=== PATIENT | female | born 2000 | race Caucasian/White ===

== ENCOUNTER 2021-12-06 15:18 | Outpatient (CLI) | payer OTHER, SELFPAY ==
[2021-12-08 19:50] LABS: Rapid Plasma Reagin (RPR) Non Reactive (Non Reactive)
== END 2021-12-06 15:19 | disposition home or self-care (01) ==
PROVIDERS: Visit Provider Physician Assistant
DX: Z34.90 Encounter for supervision of normal pregnancy, unspecified, unspecified trimester (principal)
CPT/HCPCS: 86592

== ENCOUNTER 2021-12-27 11:27 | Outpatient (CLI) | payer OTHER, SELFPAY ==
[2021-12-27] VITALS (12 sets, daily range): BP systolic 108–129; BP diastolic 62–84; PULSE 80–92; RESP 16; TEMP 36.3–37.1; O2SAT 96–100; BMI 34.3
--- NOTE | 2021-12-27 11:23 | ED.NURSE ---
after triage assessment and ob assessment pt will go to OB, talked to raeann dry house tender.
[2021-12-27 12:15] LABS: Appearance Urine Clear (Clear); Bilirubin Urine Negative (Negative); Blood Urine Negative (Negative); Color Urine Yellow (Yellow); Glucose Urine Negative (Negative); Ketones Urine Negative (Negative); Leukocyte Esterase Urine Trace (Negative); Nitrite Urine Negative (Negative); Protein Urine Negative (Negative); Urobilinogen Urine 0.2 (0.2-1.0)
[2021-12-27 12:25] LABS: RBC Urine 0-2 (0-2); WBC Urine 0-2 (0-5)
--- NOTE | 2021-12-27 14:39 | PC.OBNST ---
NST Note NST Note Start: 12/27/21 11:43 Freq: ONCE Status: Active Protocol: Document 12/27/21 14:37 MMB (Rec: 12/27/21 14:39 MMB [id number]) NST Note 4 Para (# of births) 1 EDC 02/26/22 Gestational Age In Weeks & Days 31 Weeks & 2 Days Patient Presented with Complaint(s) of Pain If Pain, describe location left rib/flank/shoulder pain Reactive Yes Appropriate for Gestational Age Yes RN Dionna Garcia RN Date 12/27/21 Reactive Yes Appropriate for Gestational Age Yes RN Dionna Sanchez RN Date 12/27/21 OB NST charge Yes Complete NST Note via Write Note Yes The provider's electronic signature indicates the NST is reactive/appropriate for gestational age. *Note to provider: If an addendum is required, open the patient's chart and click on the note under the Nurse/Allied Health tab.
== END 2021-12-27 13:24 | disposition home or self-care (01) ==
LOC: OB OUT 11:29 → OB 11:31
PROVIDERS: Visit Provider Obstetrics & Gynecology
DX: Z34.93 Encounter for supervision of normal pregnancy, unspecified, third trimester (principal); Z3A.32 32 weeks gestation of pregnancy
CPT/HCPCS: 59025; 81003; 81015; 99213

== ENCOUNTER 2022-01-31 15:35 | Outpatient (CLI) | payer OTHER, SELFPAY ==
[2022-02-01 14:17] LABS: Strep B DNA Probe NEGATIVE (Negative)
[2022-02-02 08:19] LABS: Strep B Pen/Amox Allergy No
== END 2022-01-31 15:36 | disposition home or self-care (01) ==
LOC: NFLDREF 15:37
PROVIDERS: Visit Provider Physician Assistant
DX: Z34.93 Encounter for supervision of normal pregnancy, unspecified, third trimester (principal); Z3A.35 35 weeks gestation of pregnancy
CPT/HCPCS: 87081; 87653

== ENCOUNTER 2022-02-17 05:58 | Inpatient (IN) | payer OTHER, SELFPAY ==
[2022-02-17] VITALS (51 sets, daily range): BP systolic 95–147; BP diastolic 53–90; PULSE 57–112; RESP 16–20; TEMP 36.3–37.1; O2SAT 85–100; BMI 34.8
[2022-02-17 06:33] LABS: Amnisure Rom* POSITIVE
[2022-02-17] MEDS: ROPIVACAINE 0.2% 100 ml 100 ML 12 MG EPIDURAL (07:42)
[2022-02-17 07:45] LABS: SARS PCR* Negative SARS-CoV-2 (Negative)
--- NOTE | 2022-02-17 07:48 | PM.ANBPRC ---
PFSH PFS Medical History (Updated 02/16/22 @ 12:41 by Lucy Billy MD) Family history of congenital heart defect Family History (Updated 09/07/21 @ 10:15 by Monet Husain) Other Congenital heart defect Social History Smoking Status: Never smoker Meds Home Medications and Allergies Home Medications Medication Instructions Recorded Confirmed Type doxylamine succinate 25 mg tablet 25 mg PO QHS PRN 02/10/22 02/17/22 History (Unisom (doxylamine)) prenat.vits,ruba,moi-rtyh-spazc 1 tab PO QDAY 02/10/22 02/17/22 History Allergies Allergy/AdvReac Type Severity Reaction Status Date / Time No Known Drug Allergies Allergy Verified 02/17/22 06:51 Results Labs Labs: Laboratory Results - last 24 hr 02/17/22 02/17/22 06:23 06:35 Membrane Rupture POSITIVE SARS-CoV-2 (PCR) Negative SARS-CoV-2 Vital Signs Vital Signs: Last Vital Signs Pulse 91 02/17/22 07:47 BP 117/58 L 02/17/22 07:47 Pulse Ox 85 L 02/17/22 07:37 Weight: 92.079 kg Height: 162.56 cm Anesthesia Procedures Epidural Insertion Patient Location: OB Start Time: 07:30 Stop Time: 08:30 Start Date: 02/17/22 Stop Date: 02/17/22 Reason for Block: procedure for pain Patient Position: sitting Performed By: Orlando Dang Preanesthetic Checklist: IV checked, site marked, risks and benefits discussed, monitors and equipment checked and pre-op evaluation Prep: chlorhexidine gluconate Monitoring: blood pressure monitoring, continuous pulse oximetry and heart rate Approach: midline Vertebral Space: lumbar (1-5) Epidural Technique: JACKSON saline Needle Type: Tuohy needle Injection Technique: continuous catheter Needle gauge: 17 Needle Insertion Depth (cm): 7 Catheter Gauge: 19 Catheter Type: multi-orifice Catheter at skin depth (cm): 12 Test Dose Result: negative and lidocaine 1.5% with epinephrine 1 to 200,000
[2022-02-17] MEDS: PHENYLEPHRINE 100 MCG/ML SYRINGE IVP ×3 (07:50→09:38)
[2022-02-17] MEDS: LACTATED RINGERS 1000 ML 1,000 ML 125 ML IV (08:07)
--- NOTE | 2022-02-17 08:25 | P.LDBA_ITS ---
Subjective History of Present Illness Date Seen: 02/17/22 Narrative: Patient is being admitted to Labor and Delivery for delivery after SROM. She is a 21 year old at weeks gestation. Her full history and physical was dictated by Dr. ACEVES on 02/10/22. Please see this for details. Patient states that she had watery like discharge at around 4am this morning, she presented to labor and delivery and AmniSure completed and found positive. Also, experiencing regular and painful uterine contractions. Specific Issues/Plans Spouse:? Vamsi At home:? Boy: Kushal. Baby:Boy. Blood type:?A positive 1. Nausea and vomiting Vitamin B6 and Unisom Promethazine added 07/20/2021 2. Family history of congenital heart defect.? Father of baby's brother had missing pulmonary artery * Level 2 ultrasound and echo ordered.? * Level 2 ultrasound 09/29/2021:? Anterior placenta, no previa.? EFW 79%.? Normal anatomy with suboptimal views of face, heart/throax/spine/right and left hand. * Follow-up ultrasound 10/20/2021:? Remaining anatomy survey was completed, no anomalies. * Did? not recommend echo as congenital heart disease is not in a first- degree relative * 3. Mildly elevated blood pressures at the end of previous , normal preeclampsia labs Pre E labs 08/16/2021: Entirely normal, with prot:cr 0.04 81 mg of aspirin 12-36 weeks 4. Cf carrier, FOB- negative 5. Influenza A 01/29/22 OB - H&P: Exam Physical Exam: Vital signs: Pulse BP Pulse Ox 85 147/78 H 100 02/17/22 08:12 02/17/22 08:12 02/17/22 08:04 Narrative: VITAL SIGNS: As noted above. GENERAL APPEARANCE: Alert, cooperative female in no acute distress. MOOD & AFFECT: Normal. ABDOMEN: Gravid, non tender. Cervix: 3/80/0, by nursing EXTREMITIES: Well perfused. Nontender. NST: 130bpm/positive accelerations/negative decelerations/ moderate variability/ regular uterine contractions OB - Problem Based A/P Additional Plan (1) : Status: Acute Plan Patient presents in early labor after SROM. At admission cervix found favorable. She has continued to experience regular painful uterine contractions. NST category 1. 1. Expectant management of labor 2. Epidural in place 3. Continuos monitoring 4. GBS negative no need for antibiotics
[2022-02-17 09:13] LABS: Hematocrit 31.6 % (33.0-51.0); Hemoglobin* 10.6 gm/dL (12.0-16.0); Mean Corpuscular HGB Conc 34 gm/dL (32-36); Mean Corpuscular Hemoglobin 29 pg (26-34); Mean Corpuscular Volume 86 fL (80-100); Platelet Count* 196 K/uL (140-440); Red Blood Count 3.67 m/uL (4.00-5.20); White Blood Count* 9.36 K/uL (4.50-11.00)
[2022-02-17 09:17] LABS: Slide Review Reflex No
[2022-02-17 09:28] LABS: Creatinine* 0.6 mg/dL (0.5-1.5); Estimated Glomerular Filt Rate 130 ml/min
[2022-02-17 09:29] LABS: Alanine Aminotransferase* 19 U/L (4-35); Aspartate Amino Transferase* 35 U/L (12-35); Blood Urea Nitrogen* 11 mg/dL (5-24); Fibrinogen* 497 mg/dL (200-450); Prothrombin Time 12.7 Seconds
[2022-02-17] MEDS: LACTATED RINGERS 1000 ML 1,000 ML 1200 ML IV (10:36)
[2022-02-17] MEDS: OXYTOCIN 30 unit/500 ML in NS 30 UNIT/500 ML BAG 325 UNIT IVPB (12:25)
[2022-02-17] MEDS: IBUPROFEN 600 MG TABLET PO ×2 (16:38→22:26)
--- NOTE | 2022-02-17 19:05 | PM.OBPRCVD ---
Procedure Procedure Done: Global Intrapartal Events: None Delivery monitor: external FHT Route of delivery: Episiotomy description: None Laceration description: Perineal - 2nd Degree Delivery repair: Vicryl Estimated blood loss (mL): 300 Anesthesia type: Epidural Disposition: floor Complications: None Narrative: The patient is a 21 year-old G 4 P 2021 admitted on 02/17/2022 at 38 Weeks, 5 Days gestation in labor for delivery.? Cervical exam on admission was 3 cm/80 % effaced/0 station with membranes ruptured in vertex presentation.? Contractions were every 3-5 minutes.? heart rate demonstrated baseline 140 bpm with moderate variability, positive accelerations, negative decelerations; a category 1 tracing.? SROM occurred at 0450 with clear fluid. ? Labor Analgesia:? Epidural ? Pitocin:? No ? Labor onset:? 0700 ? Complete:? 1200 ? Pushing:? 1201 ? heart tones during second stage were category 2, 1 deceleration down to 80s while with the next push baby delivered. ? At 12 20 a viable male delivered in vertex AVELINA presentation over intact perineum via spontaneous vaginal delivery.? was placed on maternal abdomen.? Cord was clamped and cut after a 30-60 second delay.? Nose and mouth were bulb suctioned.? Infant weight pending.? 8 at 1 minute and 9 at 5 minutes.? Shoulder dystocia: No.? Nuchal cord: Yes x1. ? Placenta delivered spontaneously and complete at 1224 with a 3 vessel cord. ? Mother and infant were stable after delivery. ? Lacerations:? 2nd degree perineal, repaired with Vicryl 3-0. ? Blood loss: 300 mL. Blood loss measurement type: QBL ? Sponge and needles counts are correct. Gender: Male presentation: vertex Placental Delivery Description: Spontaneous Cord Description: 3 Vessels and Nuchal Cord total score - 1 minute: 8 total score - 5 minute: 9
[2022-02-17] MEDS: ACETAMINOPHEN 500 MG TABLET 1000 MG PO (19:27)
[2022-02-18 02:09] VITALS: BP 119/80; PULSE 68; RESP 16; TEMP 36.3; O2SAT 98
[2022-02-18] MEDS: ACETAMINOPHEN 500 MG TABLET 1000 MG PO (02:13)
[2022-02-18 04:31] LABS: Hemoglobin* 10.1 gm/dL (12.0-16.0)
[2022-02-18] MEDS: IBUPROFEN 600 MG TABLET PO ×2 (04:49→11:42)
[2022-02-18 05:30] VITALS: BP 116/80; PULSE 69; RESP 16; TEMP 36.6; O2SAT 95
--- NOTE | 2022-02-18 07:24 | P.DS_ITS ---
DS: Providers Provider Date Seen: 02/18/22 Date of admission: 02/17/22 05:58 Primary care physician: Not a Local Provider Admitting Clinician: Lucy Billy MD Attending Physician on discharge: Ashly King CNM Date of Discharge: 02/18/22 DS: Diagnosis Discharge Diagnosis (1) care and examination immediately after delivery: Status: Acute (2) Status post normal vaginal delivery: Status: Acute (3) Lactating mother: Status: Acute Exam Const: Vital Signs, click to edit/add: Vital Signs - 24 hr 02/17/22 07:28 02/17/22 07:32 02/17/22 07:33 Temperature Pulse Rate 81 86 Pulse Rate [Pulse Oximeter] Respiratory Rate Blood Pressure 134/86 136/90 H Blood Pressure [Le ft Arm] Pulse Oximetry 100 100 Oxygen Delivery Me od 02/17/22 07:35 02/17/22 07:37 02/17/22 07:39 Temperature Pulse Rate 85 87 Pulse Rate [Pulse Oximeter] Respiratory Rate Blood Pressure 137/85 136/66 Blood Pressure [Le ft Arm] Pulse Oximetry 85 L Oxygen Delivery Me od 02/17/22 07:41 02/17/22 07:43 02/17/22 07:45 Temperature Pulse Rate 96 88 91 Pulse Rate [Pulse Oximeter] Respiratory Rate Blood Pressure 129/60 131/59 L 118/55 L Blood Pressure [Le ft Arm] [facility]etry [facility] 02/[facility] 07:47 02/17/22 07:49 02/17/22 07:51 Temperature Pulse Rate 91 100 86 Pulse Rate [Pulse Oximeter] Respiratory Rate Blood Pressure 117/58 L 111/57 L 122/61 Blood Pressure [Le ft Arm] Pulse Oximetry Oxygen Delivery Me thod 02/17/22 07:57 02/17/22 08:02 02/17/22 08:04 Temperature Pulse Rate 81 81 Pulse Rate [Pulse Oximeter] Respiratory Rate Blood Pressure 128/58 L 133/76 Blood Pressure [Le ft Arm] Pulse Oximetry 100 Oxygen Delivery Me od 02/17/22 08:07 02/17/22 08:12 02/17/22 08:34 Temperature Pulse Rate 76 85 83 Pulse Rate [Pulse Oximeter] Respiratory Rate Blood Pressure 141/75 H 147/78 H 110/58 L Blood Pressure [Le ft Arm] Pulse Oximetry Oxygen Delivery Me thod 02/17/22 08:37 02/17/22 08:54 02/17/22 08:07 Temperature 98.5 F Pulse Rate 80 100 Pulse Rate [Pulse Oximeter] Respiratory Rate 16 Blood Pressure 112/56 L 131/59 L Blood Pressure [Le ft Arm] Pulse Oximetry Oxygen Delivery Me thod 02/17/22 09:23 02/17/22 09:23 02/17/22 09:31 Temperature 98.3 F Pulse Rate 90 57 L Pulse Rate [Pulse Oximeter] Respiratory Rate 16 Blood Pressure 96/54 L 107/55 L Blood Pressure [Le ft Arm] Pulse Oximetry Oxygen Delivery Me thod 02/17/22 09:38 02/17/22 09:53 02/17/22 10:11 Temperature Pulse Rate 63 67 93 Pulse Rate [Pulse Oximeter] Respiratory Rate Blood Pressure 99/57 L 110/55 L 108/55 L Blood Pressure [Le ft Arm] Pulse Oximetry Oxygen Delivery Ca thod 02/17/22 10:23 02/17/22 10:39 02/17/22 10:48 Temperature Pulse Rate 81 80 Pulse Rate [Pulse Oximeter] Respiratory Rate Blood Pressure 105/60 123/57 L Blood Pressure [Le ft Arm] Pulse Oximetry 100 Oxygen Delivery Ca thod 02/17/22 10:53 02/17/22 11:09 02/17/22 11:23 Temperature Pulse Rate 75 72 78 Pulse Rate [Pulse Oximeter] Respiratory Rate Blood Pressure 120/58 L 109/63 99/54 L Blood Pressure [Le ft Arm] Pulse Oximetry Oxygen Delivery Ca thod 02/17/22 11:38 02/17/22 11:54 02/17/22 12:07 Temperature 98.7 F Pulse Rate 87 75 Pulse Rate [Pulse Oximeter] Respiratory Rate 18 Blood Pressure 95/53 L 106/59 L Blood Pressure [Le ft Arm] Pulse Oximetry Oxygen Delivery Me thod 02/17/22 12:23 02/17/22 12:28 02/17/22 12:42 Temperature Pulse Rate 81 82 80 Pulse Rate [Pulse Oximeter] Respiratory Rate Blood Pressure 120/80 114/60 120/65 Blood Pressure [Le ft Arm] Pulse Oximetry Oxygen Delivery Me thod 02/17/22 12:57 02/17/22 13:13 02/17/22 13:31 Temperature Pulse Rate 81 74 78 Pulse Rate [Pulse Oximeter] Respiratory Rate Blood Pressure 119/63 115/61 117/66 Blood Pressure [Le ft Arm] Pulse Oximetry Oxygen Delivery Me thod 02/17/22 13:43 02/17/22 11:54 02/17/22 13:58 Temperature 98.8 F Pulse Rate 75 72 Pulse Rate [Pulse Oximeter] Respiratory Rate 20 Blood Pressure 121/68 124/68 Blood Pressure [Le ft Arm] Pulse Oximetry Oxygen Delivery Me thod 02/17/22 14:13 02/17/22 14:27 02/17/22 10:50 Temperature 98.8 F Pulse Rate 74 75 Pulse Rate [Pulse Oximeter] Respiratory Rate 16 Blood Pressure 120/75 115/72 Blood Pressure [Le ft Arm] Pulse Oximetry Oxygen Delivery Me thod 02/17/22 12:28 02/17/22 16:05 02/17/22 12:42 Temperature 97.4 F L 98.8 F Pulse Rate Pulse Rate [Pulse Oximeter] 84 Respiratory Rate 16 16 16 Blood Pressure Blood Pressure [Le ft Arm] 118/84 Pulse Oximetry 100 Oxygen Delivery Me thod Room Air 02/17/22 12:57 02/17/22 13:13 02/17/22 13:31 Temperature 98.8 F Pulse Rate Pulse Rate [Pulse Oximeter] Respiratory Rate 16 16 16 Blood Pressure Blood Pressure [Le ft Arm] Pulse Oximetry 100 Oxygen Delivery Ca thod 02/17/22 13:43 02/17/22 13:58 02/17/22 14:13 Temperature 98.6 F 98.6 F Pulse Rate Pulse Rate [Pulse Oximeter] Respiratory Rate 16 16 16 Blood Pressure Blood Pressure [Le ft Arm] Pulse Oximetry 100 Oxygen Delivery Me thod 02/17/22 14:27 02/17/22 19:23 02/18/22 02:09 Temperature 98.2 F 97.4 F L Pulse Rate Pulse Rate [Pulse Oximeter] 68 68 Respiratory Rate 16 16 16 Blood Pressure Blood Pressure [Le ft Arm] 118/79 119/80 Pulse Oximetry 97 98 Oxygen Delivery Me thod Room Air Room Air 02/18/22 05:30 Temperature 97.8 F Pulse Rate Pulse Rate [Pulse Oximeter] 69 Respiratory Rate 16 Blood Pressure Blood Pressure [Le ft Arm] 116/80 Pulse Oximetry 95 Oxygen Delivery Me thod Room Air Documenting provider has reviewed patient's vital signs: yes Common normals : no apparent distress, oriented x3, healthy appearing and alert HENMT: Common normals: normocephalic Head and scalp: normocephalic Eye: Common normals: PERRL Pupil: PERRL Neck & C-Spine: Common normals: full ROM and supple Chest: Common normals: inspection of chest normal Resp: Common normals: normal respiratory effort and clear to auscultation bilaterally Auscultation: clear to auscultation bilaterally Cardio: Common normals: regular rate and regular rhythm Rate: regular rate Rhythm: regular rhythm GI: Common normals: soft to palpation Palpation: soft : OB/external & speculum: Yes perineal/vaginal laceration Uterus: U/U Lochia: small Back & Pelvis: Common normals: thoracic and lumbar spine normal to inspection Extremity: Common normals: normal to inspection and full ROM Neuro: Common normals: oriented x3 Sensorium/orientation: alert Speech: speech normal Psych: Common normals: mental status grossly normal, thought process normal, speech normal and activity/motor behavior normal Speech: normal speech Thought process: normal thought process Skin: Common normals: no rashes or lesions noted General skin exam: no rashes or lesions noted OB - DS: Summary Hospital Course Hospital Course: The patient is a 21 year old G 4 P 2021 at 38 6/7 weeks gestation that was admitted to the Center on 02/17/22 for SROM. She had an uncomplicated vaginal delivery. She delivered a viable male infant. the patient has done well. The pain is well controlled with current medications.? She has no new complaints.? Urinary output is adequate and she is voiding without difficulty.? Has a good appetite, is tolerating a general diet, is passing flatus, and has not yet had a bowel movement.? Has small amount of rubra lochia.? She is ambulating well. She is and reports it is going well. Peripartum Data delivery method: Vaginal Laceration description: Perineal - 2nd Degree complications: none Gender: Male Discharge Plan: Home Status at Discharge Functional status at discharge: independent ambulation Overall status at discharge: patient is progressing back to baseline Time Spent with Patient Time attestation: Total time spent providing and/or coordinating discharge services: Discharge Plan Discharge Disposition: Home, Self-Care Date of Admission: 02/17/22 05:58 Attending Provider on Discharge: Ashly King Primary Care Provider: Provider,Not a Local Condition: Stable Anticipated Discharge Date/Time: 02/18/22 12:00 Discharge Medications: New acetaminophen 500 mg Tablet 1,000 mg PO Q6H PRNQty: 0 0RF docusate sodium 100 mg Capsule 100 mg PO DAILY Qty: 90 0RF ibuprofen 600 mg Tablet 600 mg PO Q6H PRNQty: 60 0RF Continued prenat.vits,ruba,cuw-kgjw-gpzqg Tablet 1 tab PO QDAY Unisom (doxylamine) 25 mg tablet 25 mg PO QHS PRN Discharge Orders: Discharge Order (Routine); Ordered 02/18/22 Ordered By: Ashly King Patient Education: OB Vaginal/Breast Feeding Additional Instructions: Discharge instructions were reviewed with the patient including signs and symptoms of infection and home going medications Nothing vaginally for 6 weeks: no tampons or intercourse Off Work or School for 6 weeks 2-week visit: discuss infant feeding concerns, review control options and screen for anxiety/depression. 6-week visit for an annual exam. consultation services are available to all mothers and babies for the first year after delivery.? To make an appointment, please call [phone]. Activity Level: Activity as Tolerated Discharge Diet: Regular Follow Up Appointments: [facility] [Provider Group] (2 weeks and 6 weeks ) Forms: [email or web address] Info Instructions
[2022-02-18 08:27] VITALS: BP 123/81; PULSE 67; RESP 16; TEMP 36.6
[2022-02-18] MEDS: DOCUSATE SODIUM 100 MG CAPSULE PO (11:43)
== END 2022-02-18 14:30 | disposition home or self-care (01) | DRG 807 ==
LOC: OB OUT 05:59 → OB 06:00
PROVIDERS: Obstetrics & Gynecology; Admitting Provider Obstetrics & Gynecology; Visit Provider Obstetrics & Gynecology
DX: O13.4 Gestational [pregnancy-induced] hypertension without significant proteinuria, complicating childbirth (principal); Z37.0 Single live birth; O70.1 Second degree perineal laceration during delivery; Z3A.38 38 weeks gestation of pregnancy
CPT/HCPCS: 01967; 36415; 82565; 82570; 84112; 84156; 84450; 84460; 84520; 85018; 85027; 85384; 85610; 87635; A9270; J2370; J2795; J7120; S0020

== ENCOUNTER 2022-11-29 18:41 | Outpatient (CLI) | payer OTHER, SELFPAY | END 2022-11-29 18:42 | disposition home or self-care (01) | LOC: NFLDREF 18:42 | PROVIDERS: Visit Provider Physician Assistant | DX: N89.8 Other specified noninflammatory disorders of vagina (principal) | CPT/HCPCS: 87102 ==

== ENCOUNTER 2022-12-27 09:13 | Outpatient (CLI) | payer OTHER, SELFPAY ==
--- NOTE | 2022-12-27 09:15 | CRLHL7_ITS ---
For Patients: As a result of the Century Cures Act, medical imaging exams and procedure reports are released immediately into your electronic medical record. You may view this report before your referring provider. If you have questions, please contact your health care provider. INDICATION: First trimester scan, establish dates. COMPARISON: None. TECHNIQUE: Real-time torres-scale imaging of the pelvis was performed. FINDINGS: Sonographic imaging demonstrates a single living intrauterine gestation. The embryo demonstrates a regular cardiac rate measuring 157 beats per minute. The embryo`s crown-rump length measurement of 1.7 cm corresponds to a gestational age of 8 weeks 1 day with a sonographic due date of 08/07/2023. There is a normal-appearing yolk sac. There are no gross abnormalities noted within the embryo at this early state of development. The gestational sac has a normal appearance. There is no evidence of a perigestational hemorrhage. The amount of fluid within the sac appears appropriate for gestational age. The cervix is closed. The myometrium appears normal. The ovaries are of normal size. Corpus luteal cyst right ovary. There are no suspicious fluid collections noted in the cul-de-sac. IMPRESSION: Single living intrauterine with sonographic gestational age 8 weeks 1 day and sonographic due date 08/07/2023. Dictated by Ángel Arndt MD @ 12/27/2022 10:37:09 AM (Electronically Signed)
== END 2022-12-27 09:14 | disposition home or self-care (01) ==
LOC: US 09:14
PROVIDERS: Visit Provider Physician Assistant
DX: Z34.91 Encounter for supervision of normal pregnancy, unspecified, first trimester (principal); Z3A.08 8 weeks gestation of pregnancy
CPT/HCPCS: 76817; 86703; 86706; 86803; 86850; 86900; 86901; 87086; 87340; 87491; 87591

== ENCOUNTER 2022-12-27 10:28 | Outpatient (CLI) | payer OTHER, SELFPAY ==
[2022-12-27 18:49] LABS: Chlamydia DNA Amplified* NOT DETECTED (No Detected); GC DNA Amplified* NOT DETECTED (No Detected)
== END 2022-12-27 10:29 | disposition home or self-care (01) ==
PROVIDERS: Visit Provider Physician Assistant
DX: Z34.91 Encounter for supervision of normal pregnancy, unspecified, first trimester (principal); Z3A.08 8 weeks gestation of pregnancy
CPT/HCPCS: 86592; 86703; 86704; 86706; 86762; 86787; 86803; 86850; 86900; 86901; 87086; 87340; 87491; 87591

== ENCOUNTER 2023-03-28 12:57 | Outpatient (CLI) | payer OTHER, SELFPAY ==
--- NOTE | 2023-03-28 13:00 | CRLHL7_ITS ---
For Patients: As a result of the Century Cures Act, medical imaging exams and procedure reports are released immediately into your electronic medical record. You may view this report before your referring provider. If you have questions, please contact your health care provider. INDICATION: Evaluate anatomy. COMPARISON: 12/27/2022 TECHNIQUE: Real time torres scale imaging of the fetus was performed as well as color Doppler analysis of the umbilical vessels. FINDINGS: Sonographic imaging demonstrates a single living intrauterine gestation. Fetus demonstrates a regular cardiac rate of 149 beats per minute. Fetus has a transverse position, head maternal left. The placenta lies anteriorly without evidence of placenta previa. Edge of the placenta is located 2.7 cm from the internal cervical os. Amniotic fluid volume appears normal. Single deepest vertical pocket: 4.0 cm. The cervix is closed and measures 3.9 cm in length. The composite ultrasound gestational age is calculated at 21 weeks 2 days with an estimated sonographic due date of 08/06/2023. The estimated weight is 401 grams which lies at the 52nd %. The following biometric measurements were obtained: Biparietal diameter: 5.0 cm/21 weeks 1 day 56th% Head circumference: 18.7 cm/21 weeks 0 days 40th% Abdominal circumference: 16.6 cm/21 weeks 4 days 64th% Femur length: 3.4 cm/20 weeks 4 days 27th% The HC/AC ratio measures: 1.13 range (1.06-1.24) On anatomic survey, there is a normal appearance of the cerebral ventricles, cavum septi pellucidi, cisterna magna and cerebellum. The nose, lips, and facial profile appear normal. The cervical, thoracic and lumbar spine are well visualized and appear normal. There is a normal four-chamber heart view and the left and right ventricular outflow tracts appear normal. The diaphragm and stomach appear normal. The kidneys and bladder also appear normal. There is a normal three-vessel cord and there is a marginal cord insertion site, located 1.1 cm from the placenta edge. The four extremities appear normal. IMPRESSION: Concordance of clinical and sonographic dating. No intrinsic abnormalities noted on anatomic survey. Marginal cord insertion 1.1 cm from the placental edge. Dictated by Ángel Arndt MD @ 03/30/2023 1:21:45 PM (Electronically Signed)
== END 2023-03-28 12:58 | disposition home or self-care (01) ==
LOC: US 12:57
PROVIDERS: Visit Provider Physician Assistant
DX: Z34.92 Encounter for supervision of normal pregnancy, unspecified, second trimester (principal); Z3A.21 21 weeks gestation of pregnancy
CPT/HCPCS: 76805; 76817

== ENCOUNTER 2023-05-16 09:03 | Outpatient (CLI) | payer OTHER, SELFPAY ==
--- NOTE | 2023-05-16 09:15 | US_ITS ---
Patient: PORTIA LA Facility:?[facility] Patient ID:?[id number] Site Patient ID:?[id number]. Site :?1999 Study:?US-OB Pelvis growth check-05/16/2023 10:01:35 AM Ordering Physician:STEFANIE Final Report: CLINICAL HISTORY: EFRA by LMP: 08/08/2023. GA: 28w, 0d. INDICATION: Marginal cord insertion. Growth check. COMPARISON: 03/28/2023. FINDINGS: position: Vertex. Cervix: Not visualized. Technique: Transabdominal. Placenta/cord: Anterior. Technique: Transabdominal. Amniotic Fluid: 3.4 cm SDP BPD: 7.4 cm. 29w 3d, 83 percent. HC: 27.3 cm. 29w 6d, 76 percent. AC: 26.7 cm. 30w 6d, >97 percent. FL: 5.2 cm. 27w 6d, 31 percent. FL/AC: 20 percent. HC/AC Ratio: 1.0. Heart rate: 141 beats per minute. age by this US: 29w 4d. EFRA by this US: 07/28/2023. EFW: 1437 g. Weight: 3 lbs, 3 oz. Percentile by EFRA: 93 percent. IMPRESSION: Estimated weight is at the 93rd percentile and abdominal circumference is greater than 97 percentile. DUONG ESTEVEZ M.D. MARYG:bhe D& [email or web address] be/Dictated by: Duong Etsevez MD @ 05/16/2023 3:17:00 PM Signed by:?Duong Estevez MD @05/16/2023 3:53:30 PM (Electronic Signature)
== END 2023-05-16 09:04 | disposition home or self-care (01) ==
LOC: US 09:04
PROVIDERS: Visit Provider Obstetrics & Gynecology
DX: O98.513 Other viral diseases complicating pregnancy, third trimester (principal); U07.1 COVID-19; Z3A.28 28 weeks gestation of pregnancy
CPT/HCPCS: 76816; 86592

== ENCOUNTER 2023-06-13 13:55 | Outpatient (CLI) | payer OTHER, SELFPAY ==
--- NOTE | 2023-06-13 14:00 | US_ITS ---
Patient: PORTIA LA Facility:?[facility] Patient ID:?[id number] Site Patient ID:?[id number]. Site :?1999 Study:?US-OB Pelvis growth-06/13/2023 2:53:34 PM Ordering Physician:?Ebonie Cm Final Report: INDICATION: Third trimester scan, evaluate growth. COMPARISON: none TECHNIQUE: Real time torres scale imaging of the fetus was performed as well as color Doppler and spectral Doppler analysis of the umbilical artery. FINDINGS: Sonographic imaging demonstrates a single living intrauterine gestation. Fetus demonstrates a regular cardiac rate of 134 beats per minute. Fetus has a vertex position. The placenta lies anterior without evidence of placenta previa. Amniotic fluid volume appears normal and there is a single deepest vertical pocket: 5.6 cm. The estimated weight is 2180gm which lies at the 82nd %. On the prior OB ultrasound exam dated 05/16/2023 the estimated weight was at the 93rd%. BPD 65th percentile. HC 39th percentile. AC greater than 97th percentile. FL 12th percentile. The HC/AC ratio measures 0.96 range (0.96-1.11). IMPRESSION: Sonographic gestational age 32 weeks 6 days and a sonographic due date of 08/02/2023. Sonographic age 6 days ahead of the clinical age. Estimated weight 82nd percentile. Abdominal circumference greater than 97th percentile. Dictated by Ángel La MD @ 06/15/2023 6:01:21 AM Signed by:?Ángel La MD @06/15/2023 6:01:21 AM (Electronic Signature)
== END 2023-06-13 13:56 | disposition home or self-care (01) ==
LOC: US 13:56
PROVIDERS: Visit Provider Obstetrics & Gynecology
DX: Z34.93 Encounter for supervision of normal pregnancy, unspecified, third trimester (principal); Z3A.32 32 weeks gestation of pregnancy
CPT/HCPCS: 76816

== ENCOUNTER 2023-07-10 13:58 | Outpatient (CLI) | payer OTHER, SELFPAY ==
--- NOTE | 2023-07-10 14:00 | US_ITS ---
Patient: PORTIA LA Facility:?[facility] Patient ID:?[id number] Site Patient ID:?[id number] Site :?1999 Study:?US-OB Pelvis OB F/U GROWTH-07/10/2023 2:29:38 PM Ordering Physician:CLAUDINE PRATT PA-C Final Report: INDICATION: Marginal cord insertion COMPARISON: 06/13/2023 TECHNIQUE: Real time torres scale imaging of the fetus was performed. FINDINGS: Sonographic imaging demonstrates a single living intrauterine gestation. Fetus demonstrates a regular cardiac rate of 138 beats per minute. Fetus has a vertex position. The placenta lies anteriorly. Amniotic fluid volume appears normal and there is a single deepest vertical pocket: 4.8 cm. The estimated weight is 3025gm which lies at the 75th %. On the prior OB ultrasound exam dated 06/13/2023 the estimated weight was at the 82nd%. BPD 69th percentile. HC 54th percentile. AC 93rd percentile. FL 25th percentile. The HC/AC ratio measures 0.98 range (0.92-1.06). IMPRESSION: Sonographic gestational age 36 weeks 4 days and sonographic due date of 08/03/2023. Sonographic age 5 days ahead of the clinical age. Estimated weight 75th percentile. Abdominal circumference 93rd percentile. Dictated by Ángel La MD @ 07/11/2023 9:02:39 AM Signed by:?Ángel La MD @07/11/2023 9:02:39 AM (Electronic Signature)
== END 2023-07-10 13:59 | disposition home or self-care (01) ==
LOC: US 13:58
PROVIDERS: Visit Provider Physician Assistant
DX: Z34.93 Encounter for supervision of normal pregnancy, unspecified, third trimester (principal); Z3A.36 36 weeks gestation of pregnancy
CPT/HCPCS: 76816; 87081; 87653

== ENCOUNTER 2023-07-30 07:07 | Inpatient (IN) | payer OTHER, SELFPAY ==
[2023-07-30] VITALS (46 sets, daily range): BP systolic 101–145; BP diastolic 51–94; PULSE 47–129; RESP 12–18; TEMP 36.7–37.2; O2SAT 88–100; BMI 35.2
[2023-07-30] MEDS: LACTATED RINGERS 1000 ML 1,000 ML 999 ML IV ×2 (07:50→08:40)
[2023-07-30] MEDS: ROPIVACAINE 0.2% 100 ml 100 ML 12 MG EPIDURAL (08:12)
[2023-07-30] MEDS: LIDOCAINE 2% (PF) 5 ML VIAL EPIDURAL (08:13)
--- NOTE | 2023-07-30 08:22 | P.ANBPRC_ITS ---
[facility] Medical History depression ?F53.0 - depression (ICD-10) Status post normal vaginal delivery Family history of congenital heart defect ?Z82.79 - Family history of other congenital malformations, deformations and chromosomal abnormalities (ICD-10) Family History Other Congenital heart defect Social History Narrative: History of blood transfusion: no. SOCIAL HISTORY: Occupation: [employer]-hebp mom. Marital status: . Methodist/cultural needs: no. Chemical or radiation exposure: no. Pre- tobacco use: no. Pre- alcohol use: Socially. Current tobacco use: no. Current alcohol use: no. Recreational drug use: no. Dietary restrictions: no. Blood transfusion acceptable in an emergency: yes. PSYCHOSOCIAL HISTORY: History of depression or currently depressed: History of depression. Current or past physical, emotional, or sexual mistreatment: no. Problems that will make it hard to make it to appointments: no. What is your current living situation?: I presently have a place to live Problems where you live: no known problems In the past 12 months, utilities in danger of being shut off: no In past 12 months, lack of transportation kept you from medical appts, meetings, work, or getting things needed for daily living: no How hard is it for you to pay for the very basics like food, housing, medical care, and heating: not very hard In the past 12 mos, have been you worried that your food would run out before you had money to buy more?: never true In the past 12 mos, the food you bought just didn't last and you didn't have money to buy more?: never true Smoking Status: Never smoker How often does anyone, including family, friends and others, physically hurt you : never How often does anyone, including family, friends and others, insult or talk down to you: never How often does anyone, including family, friends and others, threaten you with harm: never How often does anyone, including family, friends and others, scream or curse at you: never Little interest or pleasure in doing things: several days Feeling down, depressed, or hopeless: more than half the days Meds Home Medications and Allergies Home Medications ?Medication ?Instructions ?Recorded ?Confirmed ?Type prenat.vits,ruba,qkr-qrpb-jvalt 1 tab PO QDAY 02/10/22 07/30/23 History doxylamine succinate 25 mg tablet 25 mg PO QHS PRN 12/27/22 07/30/23 History (Unisom (doxylamine)) pyridoxine (vitamin B6) 25 mg 25 mg PO ONCE 12/27/22 07/30/23 History tablet aspirin 81 mg tablet 81 mg PO QDAY 02/21/23 07/30/23 History azelaic acid 15 % topical gel 1 applic topical QPM 07/30/23 07/30/23 History Allergies Allergy/AdvReac Type Severity Reaction Status Date / Time No Known Drug Allergies Allergy Verified 07/30/23 06:04 Results Vital Signs Vital Signs: Last Vital Signs Temp 98.9 F 07/30/23 05:57 Pulse 67 07/30/23 08:18 Resp 18 07/30/23 05:57 BP 132/81 07/30/23 08:18 Pulse Ox 100 07/30/23 08:20 Anesthesia Procedures Epidural Insertion Patient Location: OB Start Time: 07:55 Stop Time: 08:30 Start Date: 07/30/23 Stop Date: 07/30/23 Reason for Block: primary anesthetic Patient Position: sitting Performed By: Olman Presley Preanesthetic Checklist: IV checked, risks and benefits discussed, surgical consent, monitors and equipment checked, pre-op evaluation, timeout performed and anesthesia consent Prep: chlorhexidine gluconate Monitoring: blood pressure monitoring, night monitor, continuous pulse oximetry and heart rate Approach: midline Vertebral Space: lumbar (1-5) Needle Type: Tuohy needle Injection Technique: continuous catheter (catheter) Needle gauge: 17 Needle Length (cm): 10 cm Needle Insertion Depth (cm): 5 Catheter Gauge: 19 Catheter Type: multi-orifice Catheter at skin depth (cm): 10 Test Dose Result: negative and lidocaine 1.5% with epinephrine 1 to 200,000
[2023-07-30] MEDS: CALCIUM CARBONATE 500 MG CHEW PO ×2 (08:39→12:22)
--- NOTE | 2023-07-30 09:25 | W.PM.LDBA ---
Subjective History of Present Illness Time Seen by Provider: : Date Seen: 07/30/23 Narrative: Patient is being admitted to Labor and Delivery for spontaneous onset of labor. She is a 23 year old at 38w5d gestation. is complicated by marginal cord insertion, family history of congenital heart disease and COVID in . Her full history and physical was dictated by Dr. Hewitt on 07/18/2023. Please see this for details. Eva notes onset of regular and painful uterine contractions overnight. She made cervical change from 3.5/90/-2 to 4.5/90/-1 in triage. She is s/p epidural placement for pain control. RN exam just completed and is 6-7cm dilated. She denies vaginal bleeding or leaking of fluid. Endorses active movement. Specific Issues/Plans Baby: 3rd boy! Spouse: Vamsi. Sons: Franky Fatima H&P by CGM on 07/18/23 # Marginal cord insertion on FAS: -Growth US at 28 weeks 05/16/2023: Vtx, SDP 3.4cm. EFW = 1437 g, 3 lb 3 oz, 93%. BPD 83%, HC 76%, AC> 97%, FL 31%. -growth ultrasound at 32 weeks 06/13/2023: Vertex, SDP 5.57 cm. EQS=1633i, 4 lb 13 oz, 82%. BPD 65%, HC 38%, AC >97%, FL 12% -growth ultrasound at 36 weeks: cephalic, SDP 4.8, EFW 75%, AC 93%, BPD 69%, HC 54%, FL 25%. # Left labia majora raised lesion like a farnsworth hemangioma that patient would like to be removed after delivery # Covid infection in , 02/09/23 -ASA 81mg #Obesity, BMI 32.1 Hemoglobin A1c: 5.1% # Family history of congenital heart defect. Father of the baby's brother: Absent pulmonary artery Last : M did not recommend echo, not in first degree relative # History of depression TDAP:06/13/23 OB - Problem Based A/P Additional Plan (1) : Status: Acute (2) Marginal insertion of umbilical cord: Status: Acute (3) Family history of congenital heart defect: Problem details: FOB brother Status: Acute Plan Eva is a 23-year-old at 38 weeks 5 days gestational age admitted for spontaneous onset of labor. is complicated by marginal cord insertion and family history of congenital heart disease. She has made cervical change from 3.5 to 6cm on last exam. She is now comfortable with epidural in place. We discussed expectant management versus augmentation with AROM. Reviewed respective risks and benefits of these options (including risk of heart rate changes, infection and cord prolapse), where ultimately patient wishes to proceed with augmentation. She is status post AROM with return of clear fluid, complicated. - Plan to reassess cervix in about 2 hours, sooner as clinically indicated. - EFW by Anamika was 3450g, by US a month ago was 75%ile. - Blood type B positive - GBS negative OB Exam Physical Exam Vital signs: Temp Pulse Resp BP Pulse Ox 98.9 F 100 18 113/59 L 100 07/30/23 05:57 07/30/23 09:24 07/30/23 05:57 07/30/23 09:24 07/30/23 08:20 Narrative: General: Alert and oriented, resting comfortably in bed Abdomen: Gravid, nontender. EFW 3450 by Anamika. EFW on ultrasound on 07/09 [id number] at the 75th percentile. Cervix: 6/90/-1, status post AROM with return of clear fluid. heart rate: Category 1 with baseline of 125 beats per minute, moderate variability and accelerations present. Decelerations absent. [place]: Regular contractions every 3 minutes.
[2023-07-30] MEDS: OXYTOCIN 30 unit/500 ML in NS 30 UNIT/500 ML BAG 300 UNIT IVPB (12:40)
--- NOTE | 2023-07-30 13:01 | W.PM.VAGD1_ITS ---
Procedure Delivery date: 07/30/23 Procedure Done: Global Intrapartal Events: Labor Augmentation Delivery augmentation: rupture of membranes Delivery monitor: internal FHT Route of delivery: Laceration description: Vaginal - 1st Degree Delivery repair: Vicryl Estimated blood loss (mL): 400 Anesthesia type: Epidural Disposition: floor Complications: Suspected partial placental abruption Narrative: Eva is a 23-year-old at 38 weeks 5 days gestational age admitted for spontaneous onset of labor. is complicated by marginal cord insertion and family history of congenital heart disease. Her labor was augmented with AROM at about 0935 with return of clear fluid. heart tones during active labor were category 1 and 2. She was noted to have onset of category FHR tracing for late decelerations at 1115, RN exam confirmed patient was anterior lip. Maternal repositioning occurred, with improvement to baseline of 130bpm, moderate variability, accelerations present and intermittent late decelerations. She was complete an +1 station at 1148. Repositioning efforts were ensued with anticipated pushing efforts, where FHR monitoring was intermittent for several minutes. At times, it was noted to be in the 120s-130s audibly but at other times heart rate was heard int he 60s. Maternal pulse was additionally in the 60s, where continuous pulse ox was requested. Expulsive efforts began at 1200, where variability decelerations were noted with pushing efforts with delayed return to baseline. Frequent position changes were ongoing and IVF bolus initiated. Through this time, amniotic fluid was noted to be progressively blood tinged and ultimately farnsworth to dark red in appearance. There was initially slow descent with expulsive efforts, but by 1220 station was +2. We verbally discussed my concern for partial placental abruption given blood stained amniotic fluid and heart rate changes. We reviewed potential intervention with vacuum assisted vaginal delivery in the setting of p rolonged deceleration or persistent nonreassuring status without continued progress. We reviewed risks of potential operative vaginal delivery in the event this were to be required. Pediatrics was requested for delivery. Encouraged Eva to give her best effort with every push, where she subsequently made excellent descent across her pushing efforts. She had a normal spontaneous vaginal deliv fani at 1236. Baby delivered ROT, where the anterior and posterior shoulders delivered without difficulty. No nuchal cord was noted. The cord was clamped and cut after 30 seconds of delayed cord clamping. Immediately after delivery of baby, an approximately 75cc dark red clot was noted to deliver. Active management of the third stage was initiated with pitocin and gentle traction on the umbilical cord, and the placenta delivered spontaneous and intact at 1241. There was a large blood clot (roughly 250cc in size) noted to deliver with the placenta, adherent consistent with partial abruption picture. Cord gas segment was previously clamp, requested to be sent. status was reassuring however, with APGARs of 8 and 9 at 1 and 5 minutes respectively. Infant ABO testing was not indicated given Rh status. Pediatrics provider was called off given stability. Perineum and vagina were inspected, and the following lacerations were noted: first degree vaginal laceration. Hemostatic, likely representing site of former lacerations. Three interrupted sutures were placed to reapproximate tissue with 3-0 vicryl. Excellent hemostasis was noted, excellent uterine tone. EBL was 475 total, with 150cc noted in bag with an additional 75cc clot with delivery of and 250cc clot with placenta. Placenta to be sent for pathologic evaluation in the setting of suspected abruption. It was inspected and noted be complete with 3 vessel cord. All counts were correct. Mother and infant in stable condition following the .?Debrief completed regarding my impression for partial placental abruption intrapartum. Discussed potential consequences of this diagnosis, where importantly baby Erasto is doing very well and her bleeding is appropriate. Routine cares to follow.
[2023-07-30] MEDS: IBUPROFEN 600 MG TABLET PO (17:07)
[2023-07-30] MEDS: ACETAMINOPHEN 500 MG TABLET 1000 MG PO (17:57)
[2023-07-31] MEDS: IBUPROFEN 600 MG TABLET PO ×3 (00:41→11:43)
[2023-07-31] MEDS: ACETAMINOPHEN 500 MG TABLET 1000 MG PO ×3 (00:41→11:44)
[2023-07-31 00:43] VITALS: BP 128/84; PULSE 77; RESP 12; TEMP 36.5
[2023-07-31 05:30] VITALS: BP 128/82; PULSE 77; RESP 16; TEMP 36.7
[2023-07-31] MEDS: DOCUSATE SODIUM 100 MG CAPSULE PO (05:38)
[2023-07-31 06:32] LABS: Hemoglobin* 9.4 gm/dL (12.0-16.0)
--- NOTE | 2023-07-31 07:16 | PM.ANPOST ---
Post Anesthesia Note Post Anesthesia Note Patient seen: Inpatient Respiratory Status: adequate Cardiovascular Status: adequate Mental Status: baseline Pain: adequate Temp: baseline Anesthetic awareness: N/A Complications: none Follow care: none
--- NOTE | 2023-07-31 07:45 | P.DS_ITS ---
DS: Providers Provider Date Seen: 07/31/23 Date of admission: 07/30/23 07:07 Primary care physician: Not a Local Provider Admitting Clinician: Erica Kendrick MD Attending Physician on discharge: Erica Kendrick MD Date of Discharge: 07/31/23 DS: Diagnosis Discharge Diagnosis (1) Lactating mother: Status: Acute (2) care following vaginal delivery: Status: Acute (3) Bronchitis: Status: Resolved (4) anemia: Status: Acute Exam Narrative: Exam Narrative: GENERAL APPEARANCE:? normal affect, alert, no distress? MOOD:? appropriate? CHEST:? clear to auscultation and percussion? HEART:? regular rate and rhythm? ABDOMEN:? soft, non-tender the uterine fundus is U/2 and is appropriate for the stage of recovery.? PERINEUM:? mild edema of the perineum, there is a 1st degree vaginal laceration that is healing well.? EXTREMITIES:? normal and no edema? She is requesting discharge home.? Const: Vital Signs, click to edit/add: Vital Signs - 24 hr 07/30/23 07:54 07/30/23 08:00 07/30/23 08:03 Temperature Pulse Rate 78 67 65 Pulse Rate [Pulse Oximeter] Respiratory Rate Blood Pressure 140/89 H 140/90 H 142/93 H Blood Pressure [Le ft Arm] Pulse Oximetry 98 Oxygen Delivery [facility] 07/30/23 08:05 07/30/23 08:06 07/30/23 08:09 Temperature Pulse Rate 61 56 L Pulse Rate [Pulse Oximeter] Respiratory Rate Blood Pressure 134/79 137/86 Blood Pressure [Le ft Arm] Pulse Oximetry 99 Oxygen Delivery [facility] 07/30/23 08:10 07/30/23 08:13 07/30/23 08:15 Temperature Pulse Rate 77 68 Pulse Rate [Pulse Oximeter] Respiratory Rate Blood Pressure 145/87 H 134/81 Blood Pressure [Le ft Arm] Pulse Oximetry 100 [facility] 07/[facility] 08:18 07/30/23 08:20 07/30/23 08:23 Temperature Pulse Rate 67 82 Pulse Rate [Pulse Oximeter] Respiratory Rate Blood Pressure 132/81 123/73 Blood Pressure [Le ft Arm] Pulse Oximetry 100 [facility] 07/[facility]/23 08:28 07/30/23 08:33 07/30/23 09:09 Temperature Pulse Rate 68 68 76 Pulse Rate [Pulse Oximeter] Respiratory Rate Blood Pressure 126/73 124/73 128/75 Blood Pressure [Le ft Arm] Pulse Oximetry [facility] 07/[facility]/23 09:24 07/30/23 10:58 07/30/23 11:30 Temperature Pulse Rate 100 64 62 Pulse Rate [Pulse Oximeter] Respiratory Rate Blood Pressure 113/59 L 101/51 L 107/59 L Blood Pressure [Le ft Arm] Pulse Oximetry [facility] 07/[facility]/23 11:45 07/30/23 12:00 07/30/23 12:01 Temperature Pulse Rate 112 H 66 81 Pulse Rate [Pulse Oximeter] Respiratory Rate Blood Pressure 112/62 101/59 L 111/61 Blood Pressure [Le ft Arm] Pulse Oximetry [facility] 07/[facility] 12:03 07/30/23 12:07 07/30/23 12:12 Temperature Pulse Rate Pulse Rate [Pulse Oximeter] Respiratory Rate Blood Pressure Blood Pressure [Le ft Arm] Pulse Oximetry 100 91 98 Oxygen Delivery [facility] 07/30/23 12:17 07/30/23 12:21 07/30/23 12:22 Temperature Pulse Rate Pulse Rate [Pulse Oximeter] Respiratory Rate Blood Pressure Blood Pressure [Le ft Arm] Pulse Oximetry 98 88 98 Oxygen Delivery [facility] 07/30/23 12:27 07/30/23 12:28 07/30/23 12:33 Temperature Pulse Rate Pulse Rate [Pulse Oximeter] Respiratory Rate Blood Pressure Blood Pressure [Le ft Arm] Pulse Oximetry 90 99 100 Oxygen Delivery [facility] 07/30/23 12:38 07/30/23 12:43 07/30/23 12:45 Temperature Pulse Rate 63 Pulse Rate [Pulse Oximeter] Respiratory Rate Blood Pressure 103/58 L Blood Pressure [Le ft Arm] Pulse Oximetry 98 99 Oxygen Delivery [facility] 07/30/23 12:48 07/30/23 12:53 07/30/23 12:58 Temperature Pulse Rate Pulse Rate [Pulse Oximeter] Respiratory Rate Blood Pressure Blood Pressure [Le ft Arm] Pulse Oximetry 100 99 100 Oxygen Delivery [facility] 07/30/23 13:00 07/30/23 13:15 07/30/23 13:30 Temperature Pulse Rate 64 60 50 L Pulse Rate [Pulse Oximeter] Respiratory Rate Blood Pressure 108/59 L 108/64 120/69 Blood Pressure [Le ft Arm] Pulse Oximetry Oxygen Delivery [facility] 07/30/23 13:45 07/30/23 14:45 07/30/23 17:49 Temperature 98.7 F Pulse Rate 47 L 55 L Pulse Rate [Pulse Oximeter] Respiratory Rate 16 Blood Pressure 123/66 116/71 Blood Pressure [Le ft Arm] 118/74 Pulse Oximetry 97 Oxygen Delivery [facility] Room Air 07/30/23 20:39 07/31/23 00:43 07/31/23 05:30 Temperature 98.0 F 97.7 F 98.1 F Pulse Rate Pulse Rate [Pulse Oximeter] 77 77 77 Respiratory Rate 12 12 16 Blood Pressure Blood Pressure [Le ft Arm] 128/83 128/84 128/82 Pulse Oximetry Oxygen Delivery [facility] OB - DS: Summary Hospital Course Hospital Course: Eva is a 23 year old G 4 P 3 at 38.5 weeks gestation that was admitted to the Center on 07/30/23 for active labor. She had an uncomplicated vaginal delivery. She delivered a viable male . She is breast feeding and it is going well. the patient has done well. Her pain is well controlled with current medications.? She has no new complaints.? Urinary output is adequate and she is voiding without difficulty.? Has a good appetite, is tolerating a general diet, is passing flatus, and has had a small bowel movement without difficultly.? Has scant amount of rubra lochia.? She is ambulating well. She is uncertain what she is planning for control. Reviewed options compatible with . She is anemic based on labs this morning. She denies feeling lightheaded, dizzy or fatigued. Will send her home on an iron supplement. Reviewed risk of constipation and encouraged stool softeners. Peripartum Data Infant delivery method: Vaginal Laceration description: Vaginal - 1st Degree complications: none [place] Infant Gender: Male Discharge Plan: Home Status at Discharge Functional status at discharge: independent ambulation Overall status at discharge: patient is progressing back to baseline Time Spent with Patient Time attestation: Total time spent providing and/or coordinating discharge services: Discharge Plan Discharge Disposition: Home, Self-Care Date of Admission: 07/30/23 07:07 Primary Care Provider: Provider,Not a Local Condition: Stable Anticipated Discharge Date/Time: 07/31/23 15:00 Discharge Medications: New docusate sodium 100 mg Capsule 100 mg PO DAILY Qty: 90 0RF Rx Instructions: Take 1-2 tablets daily as needed for constipation. ibuprofen 600 mg Tablet 600 mg PO Q6H PRNQty: 30 0RF ferrous sulfate 325 mg (65 mg iron) tablet 325 mg PO Q OTHER DAY Qty: 90 0RF Continued prenat.vits,ruba,ynf-gyzn-hddnb Tablet 1 tab PO QDAY azelaic acid 15 % gel 1 applic topical QPM Discontinued Unisom (doxylamine) 25 mg tablet 25 mg PO QHS PRN Patient Comments: takes half pyridoxine (vitamin B6) 25 mg tablet 25 mg PO ONCE Patient Comments: takes half aspirin 81 mg tablet 81 mg PO QDAY ondansetron 4 mg tablet,disintegrating 4 mg PO Q8H PRN (Reason: nausea and vomiting) Qty: 30 0RF Discharge Orders: Discharge Order (Routine); Ordered 07/31/23 Ordered By: Francoise Jimenez Patient Education: OB Vaginal/Breast Feeding Additional Instructions: Discharge instructions were reviewed with the patient including signs and symptoms of infection and home going medications.? Lifting Restrictions: 20 pounds for 6? weeks? ?? Do not drive while taking narcotic pain meds.? Off Work or School for 6 weeks.? ?? Symptoms to report to doctor:? -Bleeding that saturates more than one pad per hour? -Passing clots larger than the size of a golf ball? -Pain not relieved by prescribed medication? -Fever above 100.4 degrees Fahrenheit? -A foul vaginal odor? -Difficulty in emotions, mood and functions? -Thoughts of hurting yourself and/or ? -Painful, reddened area in your breast? -Any drainage, redness or tenderness in your IV/epidural site? -Severe headache that doesn't improve after taking medications? -Changes in vision, including temporary loss of vision, blurred vision, and/or light sensitivity? -Upper abdominal pain (usually under ribs on the right side)? -Decrease in urination or painful, frequent urinating? -Chest pain? -Shortness of breath? -Tenderness or pain with redness and/swelling in the calf(s) of your leg? ?? Follow Up in clinic in 2 and 6 weeks.? ?? consultation services are available to all mothers and babies for the first year after delivery.? To make an appointment, please call [phone].? Activity Level: Activity as Tolerated Discharge Diet: Regular Follow Up Appointments: [facility] [Provider Group] Provider,Not a Local [Primary Care Provider] - Forms: MyHealth Info Instructions
[2023-07-31 08:10] VITALS: BP 132/85; PULSE 66; RESP 16; TEMP 36.7; O2SAT 97
[2023-07-31 13:19] VITALS: BP 130/88; PULSE 71; RESP 16; TEMP 36.7; O2SAT 100
[2023-08-01 16:59] LABS: Rapid Plasma Reagin (RPR) Non Reactive (Non Reactive)
== END 2023-07-31 15:53 | disposition home or self-care (01) | DRG 805 ==
LOC: OB OUT 07:08 → OB 07:09
PROVIDERS: Admitting Provider Obstetrics & Gynecology; Visit Provider Obstetrics & Gynecology
DX: O69.89X0 Labor and delivery complicated by other cord complications, not applicable or unspecified (principal); O45.93 Premature separation of placenta, unspecified, third trimester; Z37.0 Single live birth; D62 Acute posthemorrhagic anemia; O90.81 Anemia of the puerperium; O70.0 First degree perineal laceration during delivery; O99.214 Obesity complicating childbirth; Z82.79 Family history of other congenital malformations, deformations and chromosomal abnormalities; Z3A.38 38 weeks gestation of pregnancy
CPT/HCPCS: 01967; 36415; 85018; 86592; 88307; A9270; J2371; J2795; J7120

== ENCOUNTER 2023-10-02 14:26 | Outpatient (CLI) | payer OTHER, SELFPAY ==
--- NOTE | 2023-10-02 16:53 | W.PM.LAC.MC ---
Consult Note - Mom Date of Visit Date of visit: 10/02/23 urban design consultant: Ebonie Gomez Visit Code: Visit Patient's Information Phone number: [phone] : 4 Para: 3 Allergies No Known Drug Allergies Allergy (Verified 09/11/23 13:10) Mother's Medical History: Medical History (Updated 08/02/23 @ 00:01 by Background Daemon) Marginal insertion of umbilical cord depression ?F53.0 - depression (ICD-10) Status post normal vaginal delivery Family history of congenital heart defect ?Z82.79 - Family history of other congenital malformations, deformations and chromosomal abnormalities (ICD-10) Delivery Information Weeks Gestation: 38 Weight: 3.51 kg Discharge Weight: 3.302 kg Baby's Information Baby's Age at Visit: 2 months Baby's Provider or Clinic: [facility] Jaundice: No Reason for Consult Reason for Consult: worsening nipple pain, initially was right nipple only, now worsening on left side also. Mom started pumping and bottling from the right breast over the weekend due tothe pain. Past Experience Past Experience: Yes Current Frequency of Day Feedings: every 3-4 hours Both Breasts: Yes Suck: strong Latch: wide, deep, mom thinks it's ok Length of Time: 15 min on the first side, usually 5 min on the second side Goals: 1 year Pumping Pumping: Yes Quantity Pumped: 3-5 oz/session Supplementing EMB Supplement: Yes Breast/Nipple Condition Engorgement: No Maternal Nipple Condition - Left: Common Nipple, Cracking/ Fissures and Other (reddened, leda at the base) Maternal Nipple Condition - Right: Common Nipple, Cracking/ Fissures and Other (reddened, leda at the base) Sore Nipples: Yes Interventions for Sore Nipples: Lansinoh and Soothies Onsite Pre-Nursing Left Nipple: Redness and Swelling Pre-Nursing Right Nipple: Redness and Swelling Post-Nursing Left Nipple: Redness and Swelling Post-Nursing Right Nipple: Redness and Swelling Assessments/Interventions Assessments/Interventions: Symptoms very concerning for thrush; baby has white patches on the inside of his lips and cheeks, doesn't wipe away easily. Mom noticed this started about 1-2 weeks ago, has not been there too long. In talking, mom thinks it did start when she started having the pain. Watching him breastfeed, he establishes a wide, deep latch, well beyond the nipple and onto the areola. Nipple is round when he comes off the breast, no creasing noted on either side. Base of nipple with deepening erythema after nursing and mom describes a stinging pain. Recommend: Continue with wide deep latch Treat for thrush - airdry nipples after feeding, clotrimazole to nipples after each feeding for yeast, silverettes for crack/fissure healing. Mom has an appointment for baby after this appointment - she will talk to Peds provider re: treatment for thrush for baby. Recommend treat unti symptoms gone for both mom and baby plus two weeks. Time spend reviewing records and face to face with mom and baby: 45 minutes Meds Home Medications and Allergies Home Medications ?Medication ?Instructions ?Recorded ?Confirmed ?Type prenat.vits,ruba,wkh-zppv-bcgzs 1 tab PO QDAY 02/10/22 09/11/23 History clindamycin phosphate 1 % lotion topical DAILY 09/11/23 09/11/23 History tretinoin 0.025 % topical cream applic topical QPM PRN 09/11/23 09/11/23 History Allergies Allergy/AdvReac Type Severity Reaction Status Date / Time No Known Drug Allergies Allergy Verified 09/11/23 13:10
== END 2023-10-02 14:27 | disposition home or self-care (01) ==
PROVIDERS: Visit Provider Obstetrics & Gynecology
DX: Z39.1 Encounter for care and examination of lactating mother (principal)
CPT/HCPCS: G0463

== ENCOUNTER 2024-01-02 13:18 | Outpatient (CLI) | payer OTHER, SELFPAY ==
[2024-01-05 02:34] LABS: HPV Source Cervical; HPV, High Risk by TMA Not Detected
== END 2024-01-02 13:19 | disposition home or self-care (01) ==
PROVIDERS: Visit Provider Obstetrics & Gynecology
DX: R53.83 Other fatigue (principal); N89.8 Other specified noninflammatory disorders of vagina; O90.81 Anemia of the puerperium; Z12.4 Encounter for screening for malignant neoplasm of cervix
CPT/HCPCS: 80053; 82306; 83540; 83550; 84443; 87624; 87625; 88141; 88142

== ENCOUNTER 2024-10-04 08:03 | Outpatient (CLI) | payer OTHER, SELFPAY ==
--- NOTE | 2024-10-04 08:15 | CRLHL7_ITS ---
For Patients: As a result of the Cures Act, medical imaging exams and procedure reports are released immediately into your electronic medical record. You may view this report before your referring provider. If you have questions, please contact your health care provider. OB ULTRASOUND LESS THAN 14 WEEKS, 10/04/2024 CLINICAL HISTORY: Dating and viability. COMPARISON: None. TECHNIQUE: Real time torres scale imaging of the fetus was performed. Transvaginal imaging performed. Transvaginal ultrasound of the pelvis was performed to better evaluate the genitourinary organs such as the ovaries and/or endometrium. FINDINGS: Imaging: TV. LMP: Unknown. CRL: 1.3 cm, 7 weeks 4 days. EFRA 05/19/2025. FHR: 149 bpm. GEST SAC: 2.8 cm, appears WNL. YOLK SAC: 3.6 mm, appears WNL. RIGHT OV: 4.0 x 1.7 x 3.0 cm. CL. LEFT OV: Not visualized. IMPRESSION: 1. Single living intrauterine measuring 7 weeks 4 days and sonographic due date 05/19/2025. 2. Corpus luteal cyst right ovary measures 2.1 x 1.5 x 1.7 cm. Ángel Arndt M.D. Diagnostic Radiologist [email or web address] Transcribed: 10:54 am DW/Dictated by: Ángel Arndt MD @ 10/04/2024 9:18:00 AM (Electronically Signed)
== END 2024-10-04 08:04 | disposition home or self-care (01) ==
LOC: US 08:04
PROVIDERS: Visit Provider Physician Assistant
DX: Z34.91 Encounter for supervision of normal pregnancy, unspecified, first trimester (principal); O34.81 Maternal care for other abnormalities of pelvic organs, first trimester; N83.11 Corpus luteum cyst of right ovary; Z3A.01 Less than 8 weeks gestation of pregnancy
CPT/HCPCS: 76817; 83021; 86592; 86703; 86704; 86706; 86762; 86787; 86803; 86850; 86900; 86901; 87086; 87340; 87491; 87591

== ENCOUNTER 2024-12-30 12:10 | Outpatient (CLI) | payer OTHER, SELFPAY ==
--- NOTE | 2024-12-30 12:15 | CRLHL7_ITS ---
For Patients: As a result of the Century Cures Act, medical imaging exams and procedure reports are released immediately into your electronic medical record. You may view this report before your referring provider. If you have questions, please contact your health care provider. OBSTETRICAL ULTRASOUND WITH UA DOPPLER ??? ANATOMY SURVEY INDICATION: anatomy survey. CLINICAL HISTORY: EFRA by ultrasound: 05/19/2025 Gestational age: 20 weeks 0 days TECHNIQUE: Real-time torres-scale transabdominal imaging of the fetus was performed as well as color Doppler analysis of the umbilical vessels. PREVIOUS ULTRASOUND: 10/04/2024. FINDINGS: position: Vertex Cervix: Visualized Technique: Transabdominal Length of closed cervix: 3.6 cm Placenta position: Anterior Technique: Transabdominal Placenta tip to internal os: 5.1 cm Umbilical cord: 3-vessel cord Placental insertion: Incomplete visualization Amniotic fluid: 4.4 cm SDP (greater than/equal to 2 to less than 8 cm) ANATOMY SURVEY: Observed Structures Cerebellum: Yes; 1.9 cm, 19 weeks 5 days Cisterna magna: Yes; 2.4 mm Nuchal fold: Yes; 2.6 mm Lateral ventricle: Yes; 4.7 mm CSP: Yes Midline falx: Yes Choroid plexus: Yes Spine: Incomplete visualization Stomach: Yes Abdominal cord insert: Yes Urinary bladder: Yes Kidneys: Incomplete visualization Diaphragm: Yes Nose/lips: Yes Orbital view: Yes Profile: Incomplete visualization Upper extremities: Yes Lower extremities: Yes Hands: Yes Feet: Incomplete visualization 4-chamber heart: Yes LVOT: Yes RVOT: Yes 3VV: Yes 3VTV: Yes BIOMETRY BPD: 3.9 cm, 17 weeks 5 days, <3% HC: 14.8/ cm, 17 weeks 6 days, <3% AC: 12.4 cm, 18 weeks 0 days, 3.3% FL: 2.5 cm, 17 weeks 4 days, <3% FL/AC: 20.10% HC/AC ratio: 1.19 heart rate: 149 bpm age by this ultrasound: 18 weeks 1 day EFRA by this ultrasound: 06/01/2025 Estimated weight: 211.73 grams (0 pounds 7 ounces) Percentile by EFRA: <3% Dopplers Umbilical artery S/D: 17.6 highest, 2.2 lowest Lack of diastolic flow in some samples of umbilical cord. Fluctuating S/D ratios. Superior/right location of abnormal UA Doppler. Echogenic bowel noted. Hypervascular base of placenta, heterogeneous. IMPRESSION: 1) Sonographic gestational age is 18 weeks 1 day and sonographic due date is 06/01/2025. Sonographic age is 13 days behind the clinical age. 2) Estimated weight is less than 3rd percentile. Abdominal circumference is 3rd percentile. BPD, HC and FL are all less than 3rd percentile. 3) Umbilical artery Doppler evaluation performed. There is diminished flow within the umbilical artery with diastole resulting in elevated S/D ratio measurements. 4) Increased retroplacental vascularity. 5) Echogenic bowel is suspected. 6) Incomplete visualization of the spine, kidneys, profile, feet and placental cord insertion. 7) Overall, this is a multifactorial abnormal anatomic survey and level 2 MFM consolidation is recommended as soon as possible. ÁNGEL LA M.D. Diagnostic Radiologist [email or web address] Transcribed: 3:[address]/Dictated by: Ángel La MD @ 12/30/2024 2:22:00 PM (Electronically Signed)
== END 2024-12-30 12:11 | disposition home or self-care (01) ==
LOC: US 12:11
PROVIDERS: Visit Provider Obstetrics & Gynecology
DX: O36.5920 Maternal care for other known or suspected poor fetal growth, second trimester, not applicable or unspecified (principal); Z3A.20 20 weeks gestation of pregnancy
CPT/HCPCS: 76805; 76820

== ENCOUNTER 2024-12-30 14:11 | Outpatient (CLI) | payer OTHER, SELFPAY | END 2024-12-30 14:12 | disposition home or self-care (01) | PROVIDERS: Visit Provider Obstetrics & Gynecology | DX: O28.3 Abnormal ultrasonic finding on antenatal screening of mother (principal); O36.5920 Maternal care for other known or suspected poor fetal growth, second trimester, not applicable or unspecified; Z3A.20 20 weeks gestation of pregnancy | CPT/HCPCS: 86317; 86644; 86645; 86778 ==